=== PATIENT | female | born 1995 | race Caucasian/White ===

== ENCOUNTER 2018-12-25 21:41 | Emergency (ER) | payer OTHER ==
--- NOTE | 2018-12-25 22:30 | ER ---
Nurse's Notes [facility] Name: Makeda Fox Age: 23 yrs Sex: Female : 1995 Arrival Date: 12/25/2018 Time: 21:42 Bed 5 Private MD: Diagnosis: Otitis externa;Otitis media, unspecified, left ear Presentation: 12/25 21:47 Presenting complaint: Patient states: Left ear pain for 1 week. Seen by PCP yesterday aj and started on Augmentin. Transition of care: patient was not received from another setting of care. Onset of symptoms was December 18, 2018. Risk Assessment: Do you want to hurt yourself or someone else? Patient reports no desire to harm self or others. Initial Sepsis Screen: Does the patient meet any 2 criteria? No. Patient's initial sepsis screen is negative. Does the patient have a suspected source of infection? No. Patient's initial sepsis screen is negative. Care prior to arrival: None. 21:47 Method Of Arrival: Ambulatory aj 21:47 Acuity: MINI 4 aj Triage Assessment: 21:48 General: Appears in no apparent distress. uncomfortable, Behavior is calm, cooperative, aj appropriate for age. Pain: Complains of pain in left ear. EENT: Reports pain in left ear. Neuro: Level of Consciousness is awake, alert, obeys commands, Oriented to person, place, time, situation, Appropriate for age. Respiratory: Airway is patent Respiratory effort is even, unlabored, Respiratory pattern is regular, symmetrical. Derm: Skin is intact, is healthy with good turgor, Skin is pink, warm \T\ dry. normal. 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 - Social history:: Smoking status: Patient/guardian denies using tobacco. - Ebola Screening: : Patient negative for fever greater than or equal to 101.5 degrees Fahrenheit, and additional compatible Ebola Virus Disease symptoms Patient denies exposure to infectious person Patient denies travel to an Ebola-affected area in the 21 days before illness onset No symptoms or risks identified at this time. - Family history:: not pertinent. Screenin:00 Abuse screen: Denies threats or abuse. Nutritional screening: No deficits noted. jd3 Tuberculosis screening: No symptoms or risk factors identified. Fall Risk Ambulatory Aid- None/Bed Rest/Nurse Assist (0 pts). Gait- Normal/Bed Rest/Wheelchair (0 pts) Mental Status- Oriented to own ability (0 pts). Total Chau Fall Scale indicates No Risk (0-24 pts). Assessment: 21:55 General: Appears in no apparent distress. uncomfortable, Behavior is calm, cooperative, jd3 appropriate for age. Pain: Complains of pain in left ear Quality of pain is described as aching, sharp, tender. Neuro: Level of Consciousness is awake, alert, obeys commands, Oriented to person, place, time, situation. Cardiovascular: Capillary refill < 3 seconds Patient's skin is warm and dry. Respiratory: Airway is patent Respiratory effort is even, unlabored, Respiratory pattern is regular, symmetrical, Denies cough, shortness of breath. GI: No signs and/or symptoms were reported involving the gastrointestinal system. : No signs and/or symptoms were reported regarding the genitourinary system. EENT: Ear canal w/ drainage noted from left ear Reports decreased hearing in left ear pain in left ear. Derm: Skin is intact, Skin is dry, Skin is normal, Skin temperature is warm. Musculoskeletal: Circulation, motion, and sensation intact. Range of motion: intact in all extremities. 23:08 Reassessment: Patient appears in no apparent distress at this time. Patient and/or jd3 family updated on plan of care and expected duration. Pain level reassessed. Patient is alert, oriented x 3, equal unlabored respirations, skin warm/dry/pink. reported understanding of discharge instructions. Vital Signs: 21:48 BP 134 / 81; Pulse 111; Resp 20; Temp 98.0; Pulse Ox 100% on R/A; Weight 65.32 kg; aj Height 5 ft. 2 in. (157.48 cm); 23:06 BP 123 / 88; Pulse 103; Resp 15 S; Pulse Ox 99% on R/A; jd3 21:48 Body Mass Index 26.34 (65.32 kg, 157.48 cm) ED Course: 21:42 Patient arrived in ED. ds1 21:47 Lei Hugo MD is Attending Physician. adeel 21:48 Triage completed. aj 21:48 Arm band placed on right wrist. Patient placed in an exam room. aj 21:52 Diony Buitrago, RN is Primary Nurse. jd3 22:00 Patient has correct armband on for positive identification. Bed in low position. Call jd3 light in reach. Side rails up X 1. Adult w/ patient. 22:28 Nieves Cuadra MD is Referral Physician. adeel 23:05 No provider procedures requiring assistance completed. Patient did not have IV access jd3 during this emergency room visit. Administered Medications: 22:28 Not Given (Duplicate Order): CIPRODEX 4 drops Otic in left ear once adeel 22:54 Drug: Rocephin (cefTRIAXone) 1 grams Route: IM; Site: left gluteus; jd3 23:07 Follow up: Response: No adverse reaction jd3 22:54 Drug: Cortisporin Drops 4 drops Route: Otic; Site: left ear; jd3 23:08 Follow up: Response: No adverse reaction jd3 22:55 Drug: [place] 10 mg-325 mg 1 tabs Route: PO; jd3 23:07 Follow up: Response: No adverse reaction jd3 Point of Care Testing: Blood Glucose: 22:39 Blood Glucose: 101 mg/dL; jd3 Ranges: Outcome: 22:29 Discharge ordered by . [facility] 23:05 Discharged to home ambulatory, with family. jd3 23:05 Condition: stable 23:05 Discharge instructions given to patient, family, Instructed on discharge instructions, follow up and referral plans. medication usage, Demonstrated understanding of instructions, follow-up care, medications, Prescriptions given X 3. 23:08 Patient left the ED. jd3 Signatures: Essence Briceño, RN Lei Mora MD MD cha Sanford, Demi ds1 Diony Buitrago, RN RN jnajma
--- NOTE | 2018-12-25 22:30 | EDPHYS ---
Physician Documentation [facility] [place], [place] [facility] Name: Makeda Fox Age: 23 yrs Sex: Female : 1995 Arrival Date: 12/25/2018 Time: 21:42 Bed 5 Private MD: ED Physician Lei Hugo HPI: 12/25 22:22 This 23 yrs old Female presents to ER via Ambulatory with complaints of Ear adeel Pain. 22:22 The patient presents with drainage, pain, swelling, tenderness. The complaints affect adeel the left ear. Onset: The symptoms/episode began/occurred 3 day(s) ago. Modifying factors: The symptoms are alleviated by covering ear, the symptoms are aggravated by pulling on ears, touching. Associated signs and symptoms: The patient has no apparent associated signs or symptoms. Severity of symptoms: At their worst the symptoms were moderate in the emergency department the symptoms are worse. The patient has not experienced similar symptoms in the past. 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 - Social history:: Smoking status: Patient/guardian denies using tobacco. - Ebola Screening: : Patient negative for fever greater than or equal to 101.5 degrees Fahrenheit, and additional compatible Ebola Virus Disease symptoms Patient denies exposure to infectious person Patient denies travel to an Ebola-affected area in the 21 days before illness onset No symptoms or risks identified at this time. - Family history:: not pertinent. ROS: 22:22 Constitutional: Negative for fever, chills, and weight loss, Eyes: Negative for injury, adeel pain, redness, and discharge, ENT: Negative for injury, pain, and discharge, Neck: Negative for injury, pain, and swelling, Cardiovascular: Negative for chest pain, palpitations, and edema, Respiratory: Negative for shortness of breath, cough, wheezing, and pleuritic chest pain, Abdomen/GI: Negative for abdominal pain, nausea, vomiting, diarrhea, and constipation, Back: Negative for injury and pain, : Negative for injury, bleeding, discharge, and swelling, Skin: Negative for injury, rash, and discoloration, Neuro: Negative for headache, weakness, numbness, tingling, and seizure, Psych: Negative for depression, anxiety, suicide ideation, homicidal ideation, and hallucinations, Allergy/Immunology: Negative for hives, rash, and allergies, Endocrine: Negative for neck swelling, polydipsia, polyuria, polyphagia, and marked weight changes, Hematologic/Lymphatic: Negative for swollen nodes, abnormal bleeding, and unusual bruising. 22:22 ENT: Positive for ear pain, sinus congestion, sore throat. Exam: 22:22 Constitutional: This is a well developed, well nourished patient who is awake, alert, adeel and in no acute distress. Head/Face: Normocephalic, atraumatic. Eyes: Pupils equal round and reactive to light, extra-ocular motions intact. Lids and lashes normal. Conjunctiva and sclera are non-icteric and not injected. Cornea within normal limits. Periorbital areas with no swelling, redness, or edema. Neck: Trachea midline, no thyromegaly or masses palpated, and no cervical lymphadenopathy. Supple, full range of motion without nuchal rigidity, or vertebral point tenderness. No Meningismus. Chest/axilla: Normal chest wall appearance and motion. Nontender with no deformity. No lesions are appreciated. Cardiovascular: Regular rate and rhythm with a normal S1 and S2. No gallops, murmurs, or rubs. Normal PMI, no JVD. No pulse deficits. Respiratory: Lungs have equal breath sounds bilaterally, clear to auscultation and percussion. No rales, rhonchi or wheezes noted. No increased work of breathing, no retractions or nasal flaring. Abdomen/GI: Soft, non-tender, with normal bowel sounds. No distension or tympany. No guarding or rebound. No evidence of tenderness throughout. Back: No spinal tenderness. No costovertebral tenderness. Full range of motion. Skin: Warm, dry with normal turgor. Normal color with no rashes, no lesions, and no evidence of cellulitis. MS/ Extremity: Pulses equal, no cyanosis. Neurovascular intact. Full, normal range of motion. Neuro: Awake and alert, GCS 15, oriented to person, place, time, and situation. Cranial nerves II-XII grossly intact. Motor strength 5/5 in all extremities. Sensory grossly intact. Cerebellar exam normal. Normal gait. Psych: Awake, alert, with orientation to person, place and time. Behavior, mood, and affect are within normal limits. 22:22 ENT: Ear canal(s): erythema, swelling, that is moderate, of the left canal, TM's: erythema, that is mild, that is moderate, on the left. Vital Signs: 21:48 BP 134 / 81; Pulse 111; Resp 20; Temp 98.0; Pulse Ox 100% on R/A; Weight 65.32 kg; aj Height 5 ft. 2 in. (157.48 cm); 23:06 BP 123 / 88; Pulse 103; Resp 15 S; Pulse Ox 99% on R/A; jd3 21:48 Body Mass Index 26.34 (65.32 kg, 157.48 cm) aj MDM: 22:10 Patient medically screened. [facility] 22:27 Data reviewed: vital signs, nurses notes, lab test result(s). [facility] 12/25 22:42 Order name: Test, Urine EDNC 12/25 23:04 Order name: Urine Dipstick--Ancillary (enter results) [facility] 12/25 22:22 Order name: Urine Dipstick-Ancillary (obtain specimen); Complete Time: 22:38 [facility] 12/25 22:22 Order name: Urine Test (obtain specimen); Complete Time: 22:56 [facility] 12/25 22:28 Order name: Blood Glucose Level; Complete Time: 22:38 [facility] Administered Medications: 22:28 Not Given (Duplicate Order): CIPRODEX 4 drops Otic in left ear once [facility] 22:54 Drug: Rocephin (cefTRIAXone) 1 grams Route: IM; Site: left gluteus; jd3 23:07 Follow up: Response: No adverse reaction jd3 22:54 Drug: Cortisporin Drops 4 drops Route: Otic; Site: left ear; jd3 23:08 Follow up: Response: No adverse reaction jd3 22:55 Drug: [place] 10 mg-325 mg 1 tabs Route: PO; jd3 23:07 Follow up: Response: No adverse reaction jd3 Point of Care Testing: Blood Glucose: 22:39 Blood Glucose: 101 mg/dL; jd3 Ranges: Critical Glucose Levels:Adult <50 mg/dl or >400 mg/dl <40 mg/dl or >180 mg/dl Disposition: 12/25/18 22:29 Discharged to Home. Impression: Otitis externa, Otitis media, unspecified, left ear. - Condition is Stable. - Discharge Instructions: Ear Drops, Adult, Otitis Externa, Otitis Externa, [id number], Ear Drops, Adult, [id number]. - Prescriptions for Augmentin 875- 125 mg Oral Tablet - take 1 tablet by ORAL route every 12 hours for 10 days; 20 tablet. Tylenol- Codeine #3 300-30 mg Oral Tablet - take 2 tablet by ORAL route every 6 hours As needed; 30 tablet. Ciprodex 0.3- 0.1 % Otic Drops, Suspension - instill 4 drop by OTIC route every 12 hours for 7 days , for ears ONLY; 1 Container. - Medication Reconciliation Form, Thank You Letter, Antibiotic Education, Prescription Opioid Use form. - Follow up: Private Physician; When: 2 - 3 days; Reason: Recheck today's complaints, Continuance of care, Re-evaluation by your physician. Follow up: Nieves Cuadra MD; When: 2 - 3 days; Reason: Recheck today's complaints, Re-evaluation by your physician. - Problem is new. - Symptoms have improved. Signatures: Dispatcher [employer] EDEssence Walker RN RN aj Anderson, Corey, MD MD cha Davies, Jonathon, RN RN jd3 Corrections: (The following items were deleted from the chart) 23:08 22:29 12/25/2018 22:29 Discharged to Home. Impression: Otitis externa; Otitis media, jd3 unspecified, left ear. Condition is Stable. Forms are Medication Reconciliation Form, Thank You Letter, Antibiotic Education, Prescription Opioid Use. Follow up: Private Physician; When: 2 - 3 days; Reason: Recheck today's complaints, Continuance of care, Re-evaluation by your physician. Follow up: Nieves Cuadra; When: 2 - 3 days; Reason: Recheck today's complaints, Re-evaluation by your physician. Problem is new. Symptoms have improved. adeel
[2018-12-25 22:46] LABS: Specific Gravity >= 1.030 (1.005-1.030)
[2018-12-25] MEDS ORDERED: HYDROCODONE/APAP 10/325 TAB ONE (22:58)
[2018-12-25] MEDS ORDERED: NEOMY/POLY/HC 1% OTIC DROPS ONE (22:58)
[2018-12-25] MEDS ORDERED: CEFTRIAXONE 1000 MG/VIAL ONE (22:59)
[2018-12-25 23:10] LABS: Urine Blood NEGATIVE (NEG); Urine Glucose NEGATIVE (NEG); Urine Protein 1+ (NEG); Urine Specific Gravity 1.025 (1.005-1.030); Urine pH 5.5 (5.0-7.0)
== END 2018-12-25 23:08 | disposition home or self-care (01) ==
LOC: ER 21:41
DX: H60.92 Unspecified otitis externa, left ear (principal); H66.92 Otitis media, unspecified, left ear; Z88.2 Allergy status to sulfonamides; Z88.8 Allergy status to other drugs, medicaments and biological substances; Z91.013 Allergy to seafood
CPT/HCPCS: 81003; 81025; 82962; 96372; 99283

== ENCOUNTER 2019-07-15 23:08 | Emergency (ER) | payer OTHER ==
[2019-07-16] MEDS ORDERED: HYDROCODONE/APAP 5/325 MG TAB ONE ×2 (00:07→02:01)
--- NOTE | 2019-07-16 01:45 | ER ---
Nurse's Notes [facility] Name: Makeda Fox Age: 23 yrs Sex: Female : 1995 Arrival Date: 07/15/2019 Time: 23:10 Bed 23 Private MD: Diagnosis: Right elbow fracture Presentation: 07/15 23:25 Presenting complaint: Patient states: i was skating in today when i fell and landed on mg2 my right arm. 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 Transition of care: patient was not received from another setting of care. Onset of symptoms was July 15, 2019. Risk Assessment: Do you want to hurt yourself or someone else? Patient reports no desire to harm self or others. Initial Sepsis Screen: Does the patient meet any 2 criteria? No. Patient's initial sepsis screen is negative. Does the patient have a suspected source of infection? No. Patient's initial sepsis screen is negative. Care prior to arrival: None. 23:25 Method Of Arrival: Ambulatory mg2 23:25 Acuity: MINI 4 mg2 Triage Assessment: 23:16 General: Behavior is calm, cooperative. ls4 23:16 Injury Description: Bruise sustained to right elbow was sustained 1-2 hours ago. ls4 Historical: - Allergies: 23:27 Iodine; mg2 23:27 SHELLFISH; mg2 23:27 Sulfa (Sulfonamide Antibiotics); mg2 - Home Meds: 23:27 Alprazolam Oral [Active]; paroxetine Oral [Active]; mg2 - PMHx: 23:27 Anxiety; Depression; mg2 - PSHx: 23:27 None; mg2 - Immunization history:: Flu vaccine is not up to date. - Coronavirus screen:: The patient has NOT traveled to [place] in the past 14 days. Proceed with normal triage process as indicated. - Social history:: Smoking status: Patient denies any tobacco usage or history of. Patient uses alcohol, occasionally. Patient/guardian denies using street drugs, IV drugs. - Ebola Screening: : No symptoms or risks identified at this time. Screenin:25 Abuse screen: Denies threats or abuse. Denies injuries from another. Nutritional ls4 screening: No deficits noted. Tuberculosis screening: No symptoms or risk factors identified. 23:25 Fall Risk None identified. ls4 Assessment: 23:16 General: Appears uncomfortable. Pain: Complains of pain in right elbow Pain currently ls4 is 8 out of 10 on a pain scale. Neuro: No deficits noted. Cardiovascular: No deficits noted. Respiratory: No deficits noted. GI: No deficits noted. : No deficits noted. Derm: No deficits noted. Musculoskeletal: Circulation, motion, and sensation intact. Capillary refill < 3 seconds, Range of motion: limited in right elbow. 07/16 00:30 Reassessment: Patient appears in no apparent distress at this time. Patient and/or ls4 family updated on plan of care and expected duration. Pain level reassessed. Patient is alert, oriented x 3, equal unlabored respirations, skin warm/dry/pink. 01:52 Reassessment: Patient and/or family updated on plan of care and expected duration. Pain ls4 level reassessed. Patient is alert, oriented x 3, equal unlabored respirations, skin warm/dry/pink. POSTERIOR LONG ARM ELBOW SPLINT APPLIED. CMS INTACT DISTALLY. Vital Signs: 07/15 23:27 Resp 18; Temp 99.2; Pulse Ox 100% on R/A; Weight 61.23 kg; Height 5 ft. 2 in. (157.48 mg2 cm); 23:30 BP 128 / 88; Pulse 80; mg2 07/16 01:49 BP 124 / 78; Pulse 72; Resp 14; Temp 98.4(O); Pulse Ox 99% on R/A; Pain 5/10; ls4 07/15 23:27 Body Mass Index 24.69 (61.23 kg, 157.48 cm) mg2 ED Course: 07/15 23:10 Patient arrived in ED. jg7 23:25 Jalil Kelsey NP is PHCP. pm1 23:25 Noble Jorge MD is Attending Physician. pm1 23:25 Patient has correct armband on for positive identification. Bed in low position. Call ls4 light in reach. Side rails up X 1. 23:25 No provider procedures requiring assistance completed. Patient did not have IV access ls4 during this emergency room visit. 23:26 Triage completed. mg2 23:27 Arm band placed on. mg2 23:28 Sling applied to right arm. mg2 23:44 Lizett Archer, MARIBEL is Primary Nurse. ls4 07/16 00:11 Hand Right 3 View XRAY Sent. ls4 00:11 Elbow Right 3 View XRAY Sent. ls4 01:43 Clint Christianson MD is Referral Physician. pm1 01:52 Orthoglass splint: posterior long arm splint applied to the right arm. ls4 Administered Medications: 00:04 Drug: [place] 5 mg-325 mg 1 tabs Route: PO; ls4 00:30 Follow up: Response: No adverse reaction; Pain is decreased ls4 01:58 Drug: [place] 5 mg-325 mg 1 tabs Route: PO; ls4 02:03 Follow up: Response: No adverse reaction ls4 Outcome: 01:44 Discharge ordered by . pm1 01:53 Discharged to home ambulatory, with family. ls4 01:53 Condition: stable 01:53 Discharge instructions given to patient, family, Instructed on discharge instructions, follow up and referral plans. medication usage, Demonstrated understanding of instructions, follow-up care, medications, splint care, Prescriptions given X 1. 02:02 Patient left the ED. ls4 Signatures: Jalil Kelsey NP CONTROLLED AREA CHECKER pm1 Daniele Ferris RN RN mg2 Lizett Archer RN RN ls4 Chelo Mclean jg7 Corrections: (The following items were deleted from the chart) 02/ 23:28 23:25 Presenting complaint: Patient states: i was skating in today when i fell and mg2 landed on my right arm. mg2
--- NOTE | 2019-07-16 01:45 | EDPHYS ---
Physician Documentation [facility] Name: Makeda Fox Age: 23 yrs Sex: Female : 1995 Arrival Date: 07/15/2019 Time: 23:10 Bed 23 Private MD: ED Physician Noble Jorge HPI: 07/15 23:35 This 23 yrs old Female presents to ER via Ambulatory with complaints of Arm pm1 Injury. 23:35 The patient or guardian complains of pain, that is acute. The complaints affect the pm1 right elbow. Context: resulted from fall while roller skating. Onset: The symptoms/episode began/occurred just prior to arrival. Treatment prior to arrival includes: no previous treatment. Modifying factors: The symptoms are alleviated by nothing. the symptoms are aggravated by movement. Associated signs and symptoms: Pertinent positives: pain, swelling, of the right elbow, Pertinent negatives: deformity. The patient has not experienced similar symptoms in the past. The patient has not recently seen a physician. Patient was skating and fell and landed directly on her right elbow. No headache, head injury, neck pain, LOC. Historical: - Allergies: 23:27 Iodine; mg2 23:27 SHELLFISH; mg2 23:27 Sulfa (Sulfonamide Antibiotics); mg2 - Home Meds: 23:27 Alprazolam Oral [Active]; paroxetine Oral [Active]; mg2 - PMHx: 23:27 Anxiety; Depression; mg2 - PSHx: 23:27 None; mg2 - Immunization history:: Flu vaccine is not up to date. - Coronavirus screen:: The patient has NOT traveled to [place] in the past 14 days. Proceed with normal triage process as indicated. - Social history:: Smoking status: Patient denies any tobacco usage or history of. Patient uses alcohol, occasionally. Patient/guardian denies using street drugs, IV drugs. - Ebola Screening: : No symptoms or risks identified at this time. ROS: 23:35 Constitutional: Negative for fever, chills, and weight loss, Neck: Negative for injury, pm1 pain, and swelling, Cardiovascular: Negative for chest pain, palpitations, and edema, Respiratory: Negative for shortness of breath, cough, wheezing, and pleuritic chest pain, Back: Negative for injury and pain. 23:35 Skin: Negative for injury, rash, and discoloration, Neuro: Negative for headache, weakness, numbness, tingling, and seizure. 23:35 MS/extremity: Positive for pain, tenderness, of the right elbow. Exam: 23:35 Constitutional: This is a well developed, well nourished patient who is awake, alert, pm1 and in no acute distress. Head/Face: Normocephalic, atraumatic. Neck: Trachea midline, no thyromegaly or masses palpated, and no cervical lymphadenopathy. Supple, full range of motion without nuchal rigidity, or vertebral point tenderness. No Meningismus. Chest/axilla: Normal chest wall appearance and motion. Nontender with no deformity. No lesions are appreciated. Cardiovascular: Regular rate and rhythm with a normal S1 and S2. No gallops, murmurs, or rubs. Normal PMI, no JVD. No pulse deficits. Respiratory: Lungs have equal breath sounds bilaterally, clear to auscultation and percussion. No rales, rhonchi or wheezes noted. No increased work of breathing, no retractions or nasal flaring. Skin: Warm, dry with normal turgor. Normal color with no rashes, no lesions, and no evidence of cellulitis. 23:35 Musculoskeletal/extremity: Extremities: grossly normal except: noted in the right elbow: tenderness, patient unable to pronate right arm, Circulation is intact in all extremities. 23:35 Neuro: Orientation: is normal, Motor: is normal, moves all fours. Vital Signs: 23:27 Resp 18; Temp 99.2; Pulse Ox 100% on R/A; Weight 61.23 kg; Height 5 ft. 2 in. (157.48 mg2 cm); 23:30 BP 128 / 88; Pulse 80; mg2 07/16 01:49 BP 124 / 78; Pulse 72; Resp 14; Temp 98.4(O); Pulse Ox 99% on R/A; Pain 5/10; ls4 07/15 23:27 Body Mass Index 24.69 (61.23 kg, 157.48 cm) mg2 Procedures: 01:43 Splinting: Splint applied to right arm using Orthoglass splint, applied by myself. pm1 Examined by me, post splint application: neurovascular intact, 2+ distal pulses palpable, brisk capillary refill noted, Patient tolerated well. MDM: 07/15 23:25 Patient medically screened. pm1 07/16 01:43 Data reviewed: vital signs. Data interpreted: Pulse oximetry: on room air is 100 %. pm1 Interpretation: normal. Counseling: I had a detailed discussion with the patient and/or guardian regarding: the historical points, exam findings, and any diagnostic results supporting the discharge/admit diagnosis, radiology results, the need for outpatient follow up, for definitive care, a orthopedic surgeon, to return to the emergency department if symptoms worsen or persist or if there are any questions or concerns that arise at home. 07/15 23:35 Order name: Elbow Right 3 View XRAY pm1 07/15 23:35 Order name: Hand Right 3 View XRAY pm1 07/16 01:56 Order name: Posterior Elbow Splint; Complete Time: 02:03 pm1 Administered Medications: 00:04 Drug: [place] 5 mg-325 mg 1 tabs Route: PO; ls4 00:30 Follow up: Response: No adverse reaction; Pain is decreased ls4 01:58 Drug: [place] 5 mg-325 mg 1 tabs Route: PO; ls4 02:03 Follow up: Response: No adverse reaction ls4 Disposition: 06:14 Co-signature as Attending Physician, Noble Jorge MD I agree with the assessment and tw4 plan of care. Disposition: 07/16/19 01:44 Discharged to Home. Impression: Right elbow fracture. - Condition is Stable. - Discharge Instructions: Cast or Splint Care, Adult, Elbow Fracture, Pediatric, How to Use a Sling. - Prescriptions for Tylenol- Codeine #3 300-30 mg Oral Tablet - take 2 tablets by ORAL route every 6 hours As needed; 20 tablet. - Work release form, Medication Reconciliation Form, Thank You Letter, Antibiotic Education, Prescription Opioid Use form. - Follow up: Emergency Department; When: As needed; Reason: Worsening of condition. Follow up: Clint Christianson MD; When: 2 - 3 days; Reason: Recheck today's complaints, Continuance of care, Re-evaluation by your physician. - Problem is new. - Symptoms have improved. Signatures: Dispatcher [employer] EDMS Jalil Kelsey, LEAD CASTER LEAD CASTER pm1 Noble Jorge MD MD tw4 Daniele Ferris RN RN mg2 Gianni, Lizett, RN RN ls4 Corrections: (The following items were deleted from the chart) 02:02 01:44 07/16/2019 01:44 Discharged to Home. Impression: Right elbow fracture. Condition ls4 is Stable. Forms are Medication Reconciliation Form, Thank You Letter, Antibiotic Education, Prescription Opioid Use. Follow up: Emergency Department; When: As needed; Reason: Worsening of condition. Follow up: Dr. Clint Christianson; When: 2 - 3 days; Reason: Recheck today's complaints, Continuance of care, Re-evaluation by your physician. Problem is new. Symptoms have improved. pm1
--- NOTE | 2019-07-16 09:01 | RAD REPORT ---
EXAM DESCRIPTION: RAD - Hand Right 3 View - 07/16/2019 12:16 am CLINICAL HISTORY: PAIN COMPARISON: No comparisons FINDINGS: Exam is labeled as a three-view right hand examination. Imaging is centered on the carpal bones and metacarpals. Portions of the distal phalanges are off the field of view. No fracture identified. There is no dislocation or periosteal reaction noted. No foreign body or sig nificant soft tissue abnormality. IMPRESSION: Negative right hand examination as detailed.
--- NOTE | 2019-07-16 09:03 | RAD REPORT ---
EXAM DESCRIPTION: RAD - Elbow Right 3 View - 07/16/2019 12:16 am CLINICAL HISTORY: PAIN COMPARISON: No comparisons FINDINGS: Lateral view shows elevated posterior fat pad. This is indirect evidence for fracture. The re is a questionable fracture along the lateral margin of the radial head. This is a subtle finding. Distal humerus and proximal ulna appear intact. There is no dislocation or periosteal reaction noted. No foreign body or other soft tissue abnormality. IMPRESSION: Elevated posterior fat pad is present which can be indirect evidence for fracture. There is a questionable fracture along the lateral margin of the radial head. MR imaging can be performed for a more sensitive assessment of the bony structures and soft tissues. Alternatively, follow-up views of the elbow in 7 days could be performed to re-evaluate for fracture.
[2019-07-17 15:23] VITALS: BP 124/78; TEMP 98.4; O2SAT 99
== END 2019-07-16 02:02 | disposition home or self-care (01) ==
LOC: ER 23:08
PROC: 2W38X1Z Immobilization of Right Upper Extremity using Splint (ICD-10-PCS; principal; 2019-07-16)
DX: S42.401A Unspecified fracture of lower end of right humerus, initial encounter for closed fracture (principal); W18.30XA Fall on same level, unspecified, initial encounter; Y93.51 Activity, roller skating (inline) and skateboarding; Y92.89 Other specified places as the place of occurrence of the external cause
CPT/HCPCS: 99284

== ENCOUNTER 2020-03-21 17:17 | Emergency (ER) | payer OTHER ==
--- NOTE | 2020-03-21 18:14 | RAD REPORT ---
EXAM DESCRIPTION: CT - Head Brain Wo Cont - 03/21/2020 5:48 pm CLINICAL HISTORY: HEADACHE Headache, drowsiness COMPARISON: HEAD BRAIN W O CONTRAST dated 09/29/2014; HEAD BRAIN W O CONTRAST dated 12/15/2011 TECHNIQUE: All CT scans are performed using dose optimization technique as appropriate and may inclu de automated exposure control or mA/KV adjustment according to patient size. FINDINGS: No intracranial hemorrhage, hydrocephalus or extra-axial fluid collection.No areas of brai n edema or evidence of midline shift. The paranasal sinuses and mastoids are clear. The calvarium is intact. IMPRESSION: No acute intracranial abnormality.
[2020-03-21 18:20] LABS: MPV 7.8 fL (7.6-11.3)
[2020-03-21] MEDS ORDERED: NA CHLORIDE 0.9% 1,000 ML ONE (18:23)
[2020-03-21] MEDS ORDERED: MEPERIDINE HCL 50 MG/ML ONE (18:23)
[2020-03-21 18:30] LABS: Absolute Lymphocytes (CBC) 1.9 K/uL (0.7-4.9); Basophils % 0.4 % (0-1.3); Hematocrit 37.6 % (36.0-45.0); Lymphocytes % 24.1 % (15.3-44.8); RBC Red Blood Cell Count 3.99 M/uL (3.86-4.86)
[2020-03-21 18:36] LABS: BUN Blood Urea Nitrogen 7 mg/dL (7-18); Bicarbonate 24 mmol/L (21-32); Glucose Level 102 mg/dL (74-106); Potassium 3.3 mmol/L (3.5-5.1); Sodium Level 142 mmol/L (136-145)
[2020-03-21 19:25] LABS: CSF Glucose 56 mg/dL (40-70)
[2020-03-21 19:49] LABS: Appearance CLEAR (CLEAR); Body Fluid Source CSF; Body Fluid WBC 0 /mm^3; Color of fluid Colorless (COLORLESS)
[2020-03-21 19:58] LABS: Appearance CLEAR (CLEAR); Body Fluid Source CSF; Body Fluid WBC 0 /mm^3; Color of fluid Colorless (COLORLESS); Fluid Total Volume 2 ml
--- NOTE | 2020-03-21 21:39 | ER ---
Nurse's Notes [facility] Name: Makeda Fox Age: 24 yrs Sex: Female : 1995 Arrival Date: 03/21/2020 Time: 17:18 Bed 6 Private MD: Diagnosis: Infectious mononucleosis, unspecified without complication Presentation: 03/21 17:32 Chief complaint: Patient states: headache X 4-5 hours today, feels like a lot of iw pressure , brain feels like it's touching her skull, also feels like her neck is stiff, and is sensitive to light, no fever, diarrhea X 2 days. Coronavirus screen: diarrhea, headache. Ebola Screen: Patient negative for fever greater than or equal to 101.5 degrees Fahrenheit, and additional compatible Ebola Virus Disease symptoms Patient denies exposure to infectious person. Patient denies travel to an Ebola-affected area in the 21 days before illness onset. No symptoms or risks identified at this time. Initial Sepsis Screen: Does the patient meet any 2 criteria? No. Patient's initial sepsis screen is negative. Does the patient have a suspected source of infection? No. Patient's initial sepsis screen is negative. Risk Assessment: Do you want to hurt yourself or someone else? Patient reports no desire to harm self or others. 17:32 Method Of Arrival: Ambulatory iw 17:32 Acuity: MINI 3 iw 21:55 Onset of symptoms is unknown. rv Triage Assessment: 20:00 Pain: Pain began suddenly, Also complains of photophobia. rv 20:00 Headache History: The patient has had previous headaches and this one is more severe rv than previous episodes. General: Appears uncomfortable, ill. General: Behavior is calm, cooperative. Historical: - Allergies: 17:35 Iodine; iw 17:35 SHELLFISH; iw 17:35 Sulfa (Sulfonamide Antibiotics); iw - PMHx: 17:35 Anxiety; Depression; iw - Immunization history:: Adult Immunizations up to date. - Family history:: not pertinent. - Social history:: Smoking status: unknown. - Hospitalizations: : No recent hospitalization is reported. Screenin:37 Abuse screen: Denies threats or abuse. Denies injuries from another. Nutritional iw screening: No deficits noted. Tuberculosis screening: No symptoms or risk factors identified. Fall Risk IV access (20 points). Assessment: 17:36 General: Appears in no apparent distress. Behavior is calm, cooperative. General: iw Reports fatigue for Denies fever. Pain: Complains of pain in head Pain currently is 10 out of 10 on a pain scale. Neuro: Level of Consciousness is awake, alert, obeys commands, Oriented to person, place, time, situation, Book Solicitor are equal bilaterally Moves all extremities. Full function Gait is steady, Speech is normal, Facial symmetry appears normal, Pupils are PERRLA, Reports headache that is the "worst ever". Cardiovascular: Patient's skin is warm and dry. Respiratory: Respiratory effort is even, unlabored, Respiratory pattern is regular, symmetrical. GI: Reports diarrhea. Derm: Skin is intact, is healthy with good turgor. Musculoskeletal: Range of motion: intact in all extremities. 21:07 Reassessment: PATIENT REPOSITIONED TO HIGH BACK REST. PATIENT DENIES ANY NEW SYMPTOMS. rv VITAL SIGNS STABLE. Neuro: Level of Consciousness is awake, alert, obeys commands, Oriented to person, place, time, situation. Vital Signs: 17:32 BP 120 / 95; Pulse 105; Resp 16; Temp 97.9; Pulse Ox 100% on R/A; iw 18:08 BP 120 / 95; Pulse 89; Resp 16; Pulse Ox 100% on R/A; iw 20:00 BP 118 / 86; Pulse 81; Resp 16; Pulse Ox 100% on R/A; rv 21:00 BP 123 / 82; Pulse 71; Resp 16; Pulse Ox 100% ; rv ED Course: 17:18 Patient arrived in ED. as 17:27 Stan Baires MD is Attending Physician. rn 17:32 Chelo Rodriguez, RN is Primary Nurse. rb1 17:34 Triage completed. iw 17:35 Jami Mohr, RN is Primary Nurse. iw 17:35 Arm band placed on. iw 17:48 CT Head Brain wo Cont In Process Unspecified. EDMS 18:13 COVID-19 Sent. rb1 18:13 Influenza Screen (a \\T\\ B) Sent. rb1 18:13 Strep Sent. rb1 20:00 Patient has correct armband on for positive identification. Bed in low position. Call rv light in reach. Side rails up X2. Adult w/ patient. 20:00 Pulse ox on. NIBP on. rv 21:08 Assist provider with lumbar puncture: Set up LP tray. Performed by Janette Rivera rv ELECTRICIAN SUBSTATION SUPERVISOR-C CSF is clear. Procedure was successful. Patient tolerated well. 21:55 IV discontinued, intact, bleeding controlled, No redness/swelling at site. Pressure rv dressing applied. Administered Medications: 18:15 Drug: NS 0.9% 1000 ml Route: IV; Rate: 1000 ml; Site: right antecubital; iw 21:56 Follow up: IV Status: Completed infusion; IV Intake: 1000ml rv 18:20 Drug: Demerol 50 mg Route: IVP; Site: right antecubital; iw 21:56 Follow up: Response: No adverse reaction; Marked relief of symptoms; Pain is decreased; rv RASS: Alert and Calm (0) Intake: 21:56 IV: 1000ml; Total: 1000ml. rv Outcome: 21:39 Discharge ordered by . tw4 21:55 Discharged to home ambulatory, with family. rv 21:55 Condition: improved 21:55 Discharge instructions given to patient, family, Instructed on discharge instructions, follow up and referral plans. medication usage, Demonstrated understanding of instructions, follow-up care, medications, Prescriptions given X 1. 21:55 Patient left the ED. rv Addendum: 03/24/2020 16:26 Addendum: COVID-19 Result: Negative result given to RN to notify pt. Attempted to i w contact pt regarding negative COVID-19 swab results. Left voice mail. 03/25/2020 14:28 Addendum: COVID-19 Result: Negative result given to RN to notify pt. Other: Pt came to a a5 the ER asking for COVID-19 results and was called back with negative COVID-19 result. Signatures: Dispatcher [employer] Mariam Sousa Irene, RN RN iw Stan Baires MD MD rn Calderon, Audri, RN RN aa5 Chelo Rodriguez, MARIBEL RN rb1 Noble Jorge MD MD tw4 Jonathan Ballard RN RN rv Corrections: (The following items were deleted from the chart) 03/21 17:36 17:32 BP 120 / 95; Pulse 87bpm; Resp 16bpm; Pulse Ox 100% RA; Temp 97.9F; iw iw
--- NOTE | 2020-03-21 21:39 | EDPHYS ---
Physician Documentation [facility] Name: Makeda Fox Age: 24 yrs Sex: Female : 1995 Arrival Date: 03/21/2020 Time: 17:18 Bed 6 Private MD: ED Physician Stan Baires HPI: 03/21 17:44 This 24 yrs old Female presents to ER via Ambulatory with complaints of rn Headache, Worst Ever, Stiff Neck, Fatigue, Diarrhea. 17:44 The patient complains of pain to the diffusely. The patient describes the headache as rn aching. Onset: The symptoms/episode began/occurred today. Severity of symptoms: At its worst the pain was "never this severe", the "worst in my life". Headache History: The patient has had previous headaches and this one is more severe than previous episodes. The symptoms are alleviated by nothing. the symptoms are aggravated by lights. The patient has not experienced similar symptoms in the past. The patient has not recently seen a physician. Reports headache, sudden onset, began today, used to have headaches but never this severe. No fever. + chills, sore throat, neck pain, diarrhea. No known sick contacts. No cough/sob. . Historical: - Allergies: 17:35 Iodine; iw 17:35 SHELLFISH; iw 17:35 Sulfa (Sulfonamide Antibiotics); iw - PMHx: 17:35 Anxiety; Depression; iw - Immunization history:: Adult Immunizations up to date. - Family history:: not pertinent. - Social history:: Smoking status: unknown. - Hospitalizations: : No recent hospitalization is reported. ROS: 17:44 Constitutional: Negative for fever, + chills Eyes: Negative for injury, pain, redness, rn and discharge, Neck: Negative for injury, and swelling, Cardiovascular: Negative for chest pain, palpitations, and edema, Respiratory: Negative for shortness of breath, cough, wheezing, and pleuritic chest pain, Abdomen/GI: Negative for abdominal pain, nausea, vomiting, and constipation, Back: Negative for injury and pain, : Negative for injury, bleeding, discharge, and swelling, MS/Extremity: Negative for injury and deformity, Skin: Negative for injury, rash, and discoloration, Neuro: Negative for numbness, tingling, and seizure. Exam: 17:44 Constitutional: This is a well developed, well nourished patient who is awake, alert, rn and in no acute distress. Sitting upright in bed. Head/Face: Normocephalic, atraumatic. Eyes: Pupils equal round and reactive to light, extra-ocular motions intact. Lids and lashes normal. Conjunctiva and sclera are non-icteric and not injected. Cornea within normal limits. Periorbital areas with no swelling, redness, or edema. ENT: + nontender anterior cervical LAD, no pharyngeal abnormality. Neck: Supple, full range of motion without nuchal rigidity, or vertebral point tenderness. No Meningismus. Cardiovascular: Tachycardic, regular Respiratory: No increased work of breathing, no retractions or nasal flaring. Skin: Warm, dry, no petechiae or cellulitis MS/ Extremity: Pulses equal, no cyanosis. Neuro: Awake and alert, GCS 15, oriented to person, place, time, and situation. Cranial nerves II-XII grossly intact. Motor strength 5/5 in all extremities. Sensory grossly intact. Cerebellar exam normal. Vital Signs: 17:32 BP 120 / 95; Pulse 105; Resp 16; Temp 97.9; Pulse Ox 100% on R/A; iw 18:08 BP 120 / 95; Pulse 89; Resp 16; Pulse Ox 100% on R/A; iw 20:00 BP 118 / 86; Pulse 81; Resp 16; Pulse Ox 100% on R/A; rv 21:00 BP 123 / 82; Pulse 71; Resp 16; Pulse Ox 100% ; rv Procedures: 18:41 Lumbar Puncture: Patient placed in left lateral decubitus position. Draped using rn sterile technique. used chlorhexidine because of iodine allergy. Collected 8 ml's of clear fluid. Sample sent to lab. Puncture site dressed with band aid, Patient tolerated well. Opening pressure 30. MDM: 17:27 Patient medically screened. rn 19:31 Transition of care: After a detail discussion of the patient's case, care is rn transferred to Noble Jorge MD. ED course: Signed out to Dr. Jorge pending CSF studies and rest of blood work. KEMP improved, stable vitals. . 03/21 17:43 Order name: CBC with Diff; Complete Time: 19:23 rn 03/21 17:43 Order name: Basic Metabolic Panel; Complete Time: 19:23 rn 03/21 17:43 Order name: Strep; Complete Time: 19:23 rn 03/21 17:43 Order name: Influenza Screen (a \\T\\ B); Complete Time: 19:23 rn 03/21 17:43 Order name: [place] Screen Profile; Complete Time: 21:37 rn 03/21 17:43 Order name: Procalcitonin; Complete Time: 21:37 rn 03/21 17:28 Order name: CT Head Brain wo Cont; Complete Time: 18:25 rn 03/21 17:44 Order name: Blood Culture Adult (2) rn 03/21 17:55 Order name: COVID-19 rn 03/21 18:30 Order name: Throat Culture EDMS 03/21 18:48 Order name: CSF Bacterial Antigens (tube 1); Complete Time: 21:37 kb 03/21 18:48 Order name: Csf Culture kb 03/21 18:48 Order name: Fluid Cell Count,Body; Complete Time: 21:37 kb 03/21 18:48 Order name: Spinal Fluid Profile; Complete Time: 21:37 kb 03/21 17:43 Order name: IV Start; Complete Time: 18:08 rn 03/21 17:55 Order name: Lumbar Puncture Consent; Complete Time: 18:22 rn 03/21 17:55 Order name: Lumbar Puncture Setup; Complete Time: 18:42 rn 03/21 18:48 Order name: LP Consents; Complete Time: 19:48 kb 03/21 18:48 Order name: LP Setup; Complete Time: 19:48 kb Administered Medications: 18:15 Drug: NS 0.9% 1000 ml Route: IV; Rate: 1000 ml; Site: right antecubital; iw 21:56 Follow up: IV Status: Completed infusion; IV Intake: 1000ml rv 18:20 Drug: Demerol 50 mg Route: IVP; Site: right antecubital; iw 21:56 Follow up: Response: No adverse reaction; Marked relief of symptoms; Pain is decreased; rv RASS: Alert and Calm (0) Disposition: 03/21/20 21:39 Discharged to Home. Impression: Infectious mononucleosis, unspecified without complication. - Condition is Stable. - Discharge Instructions: Tension Headache, Adult, Infectious Mononucleosis. - Prescriptions for Ibuprofen 800 mg Oral Tablet - take 1 tablet by ORAL route every 8 hours As needed take with food; 30 tablet. - Work release form, Medication Reconciliation Form, Thank You Letter, Antibiotic Education, Prescription Opioid Use form. - Follow up: Private Physician; When: Upon discharge from the Emergency Department; Reason: Recheck today's complaints, Continuance of care, Re-evaluation by your physician. - Problem is new. - Symptoms have improved. Signatures: Dispatcher [employer] EDOR Janette Rivera, WAYS OPERATOR-C WAYS OPERATOR-Ckb Jami Mohr, MARIBEL RN Stan Moise MD MD rn Wadley, Terrence, MD MD tw4 Jonathan Ballard RN RN rv Corrections: (The following items were deleted from the chart) 21:55 21:39 03/21/2020 21:39 Discharged to Home. Impression: Infectious mononucleosis, rv unspecified without complication. Condition is Stable. Forms are Medication Reconciliation Form, Thank You Letter, Antibiotic Education, Prescription Opioid Use. Follow up: Private Physician; When: Upon discharge from the Emergency Department; Reason: Recheck today's complaints, Continuance of care, Re-evaluation by your physician. Problem is new. Symptoms have improved. tw4
[2020-03-21 22:12] VITALS: O2SAT 100
[2020-03-21 22:15] VITALS: TEMP 97.9
[2020-03-21 22:21] VITALS: BP 123/82
== END 2020-03-21 21:55 | disposition home or self-care (01) ==
LOC: ER 17:17
PROC: 009U3ZX Drainage of Spinal Canal, Percutaneous Approach, Diagnostic (ICD-10-PCS; principal; 2020-03-21)
DX: B27.90 Infectious mononucleosis, unspecified without complication (principal); Z20.828 Contact with and (suspected) exposure to other viral communicable diseases; Z88.2 Allergy status to sulfonamides; Z91.013 Allergy to seafood; Z91.048 Other nonmedicinal substance allergy status
CPT/HCPCS: 62270 ×2; 96361; 87040 ×2; 87070 ×2; 85025; 80048; 36415; 89050 ×2; 86308; 84157; 82945; 87081; 86403 ×6; 84145; 87804 ×2; 70450; 96374; 99284; U0002; J2175; J7030

== ENCOUNTER 2022-02-17 07:47 | Day surgery (SDC) | payer OTHER ==
[2022-02-16 10:51] LABS: Specific Gravity 1.023 (1.005-1.030)
[2022-02-16 11:17] LABS: SARS-CoV-2 Antigen Rapid Res Negative (Negative)
[2022-02-17] MEDS ORDERED: Ringers Lactate 1,000 ML IV ONE (08:21)
[2022-02-17] MEDS ORDERED: CEFAZOLIN SODIUM 1 GM/VIAL ONE (08:21)
[2022-02-17] MEDS ORDERED: BUPIVACAINE 0.25% PF 10 ML VIAL ONE (11:12)
[2022-02-17] MEDS ORDERED: propofoL 200 MG/20 ML VIAL IV ONE (11:37)
[2022-02-17] MEDS ORDERED: LIDOCAINE 2% MPF 5 ML VIAL ONE (11:38)
[2022-02-17] MEDS ORDERED: FENTANYL CITR 100 MCG/2 ML ONE (11:38)
[2022-02-17] MEDS ORDERED: MIDAZOLAM HCL 2 MG/2 ML INJ ONE (11:38)
[2022-02-17] MEDS ORDERED: ONDANSETRON 4 MG/2 ML VIAL ONE (11:41)
[2022-02-17] MEDS ORDERED: dexAMETHasone 10 MG/ML VIAL ONE (12:00)
--- NOTE | 2022-02-17 12:15 | P.OP ---
Preoperative diagnosis: RIGHT Axillary Hidradenitis / Cyst Postoperative diagnosis: RIGHT Axillary Hidradenitis / Cyst Primary procedure: Wide Excision of RIGHT Axillary Hidradenitis / Cyst Anesthesia: GETA + Local Estimated blood loss: <5cc Specimen: Debridement Tissues Findings: ~ 2.5cm cystic structure possible hidradenitis Complications: None Transferred to: Recovery Room Condition: Good
[2022-02-17] MEDS: HYDROMORPHONE HCL 1 MG/ML INJ ONE ×2 (12:38→12:43)
[2022-02-17 13:15] VITALS: BP 111/72; TEMP 98.6; O2SAT 99
[2022-02-17] MEDS ORDERED: HYDROCODONE/APAP 7.5/325 MG TAB ONE (13:20)
--- NOTE | 2022-02-17 23:04 | OP ---
Date of Procedure: 02/17/2022 Surgeon: Conner Mcmahon MD, Preoperative Diagnosis: Right axillary hidradenitis/cyst. Postoperative Diagnosis: Right axillary hidradenitis/cyst. Procedure Performed: Excision of right axillary hidradenitis/cyst. Anesthesia: General endotracheal plus local. Estimated Blood Loss: 5 mL. Specimen: Debrided tissues. Findings: Approximately 2.5 cm cystic structure, possible consistent with hidradenitis of the right axilla. Complications: None. Disposition: The patient was transferred to recovery room in good condition. Procedure In Detail: After informed consent was obtained, the patient was brought to the operating r oom, prepped and draped in the usual sterile fashion. After adequate anesthesia was achieved, I inje cted the area of the right axilla, palpated the cystic structure in the right axilla, made an ellipti afshin incision around this area and dissecting down through subcutaneous tissues using a combination of sharp and electrocautery dissection circumferentially around to expose the cystic structure consiste nt with hidradenitis. This was removed in its entirety. I did not enter the prepectoral fascia at t his point, or the clavipectoral fascia. I removed the cyst in its entirety, sent it off for patholog ic examination. We irrigated the area copiously. Achieved hemostasis with electrocautery. Only irr igated the area once again and then suture closed the skin edges using a 2-0 nylon suture and a steri le dressing placed over top. The patient tolerated the procedure well without complication, transfer red to PACU in good condition. All counts were correct at the end of the case. LOVE/RICHARD Voice ID: [id number] Report ID: [id number]
== END 2022-02-17 13:42 | disposition home or self-care (01) ==
LOC: OR 07:47
PROVIDERS: ATTEND Surgery
PROC: 0JBD0ZZ Excision of Right Upper Arm Subcutaneous Tissue and Fascia, Open Approach (ICD-10-PCS; principal; 2022-02-17 09:15)
DX: L73.2 Hidradenitis suppurativa (principal); Z20.822 Contact with and (suspected) exposure to COVID-19; F41.9 Anxiety disorder, unspecified; F32.A Depression, unspecified
CPT/HCPCS: 36415; 81025; 88304; 87811; 11450; J2704; J2001; J2250; J3010; J1100; J1170; J7120; J2405; J0690

== ENCOUNTER 2022-02-18 14:38 | Emergency (ER) | payer OTHER ==
--- OUTSIDE RECORDS SUMMARY | 2022-02-18 14:42 | XMS REPORT | Continuity of Care Document ---
:1995 Author Organization [facility] t Address [address] [place] [address] Care Team Providers Name Role Phone PCP, PATIENT DOES NOT HAVE A Primary Care Physician Unavaila RACHEAL Love Attending Clinician Unavailable SAÚL BO Attending Clinician Unavailable Luis Norton DO Attending Clinician ELVIRA FLOR Attending Clinician Unavailable BREANNE PÉREZ Attending Clinician Unavailable Breanne Crews Attending Clinician LAB90 Attending Clinician Unavailable Luis BRISCOE, Geovanna Covington Attending Clinician [phone] Javier Sanford MD Attending Clinician JAVIER SANFORD Attending Clinician Unavailable Radha Khan DO Attending Clinician RADHA KHAN Attending Clinician Unavailable Payers Payer Name Policy Type Policy Number Effective Date Expiration Date [facility] [employer] 9 [id number] 2018 EMT 00:00:00 Problems Condition Condition Condition Status Onset Resolution Last Treating Co mments Source Name Details Category Date Date Treatment Clinician Date No known No known Disease Unive rs active active ity of problems problems [facility] Allergies, Adverse Reactions, Alerts Allergy Allergy Status Severity Reaction(s) Onset Inactive Treating Comm ents Source Name Type Date Date Clinician IODINE DRUG Active Rash 2019-06 Univers INGREDI 0-27 ity of 00:00: [place] 00 Medical Branch SULFA Drug Active Rash 2019-06 Univers (SULFONA Class 0-27 ity of MIDE 00:00: [place] ANTIBIOT 00 Medical ICS) Branch Sulfa Propensi Active Rash 2019-06 Univers (Sulfona ty to 0-27 ity of mide adverse 00:00: [place] Antibiot reaction 00 Medica l ics) s Branch Iodine Propensi Active Rash 2019-06 Univers ty to 0-27 ity of adverse 00:00: [place] reaction 00 Medical s Branch Sulfa Propensi Active Rash 2019-06 Univers (Sulfona ty to 0-27 ity of mide adverse 00:00: [place] Antibiot reaction 00 Medica l ics) s Branch Social History Social Habit Start Date Stop Date Quantity Comments Source Exposure to 2021-12-23 2022-01-02 Not sure [facility] SARS-CoV-2 (event) 00:00:00 19:19:00 Medica l Branch Sex Assigned At [birth year] [facility] y of [place] 00:00:00 00:00:00 Medical Branch Smoking Status Start Date Stop Date Source Tobacco smoking consumption [facility] Branch Medications Ordered Filled Start Stop Current Ordering Indication Dosage Frequency Signature Comments Components Source Medication Medication Date Date Medication? Clinician (SIG) Name Name No known No No known [facility] rs medications 01-02 medication it y of 19:26: s [place] 45 Medical Branch butorphanol 2019-06 2020- No 1mg 1 mg, Univ ers (STADOL) -27 Intravenou ity of injection 1 11:30: 09:45 s, ONCE, 1 [place] mg 00 :00 dose, [facility] Medical 03/30/20 Branch at 0630, Routine dexamethaso 2019-06 2020- No 10mg 10 mg, IV Univers ne 10-27 Push, ity of (DECADRON 09:45: 08:56 ONCE, 1 [place] PHOS[place] 00 :00 dose, [facility] afshin injection 03/30/20 Branch 10 mg at 0445, STAT metoclopram 2019-06 2020- No 10mg 10 mg, Uni vers lino HCl 10-27 Slow IV ity of (REGLAN) 09:45: 08:56 Push, [place] injection 00 :00 ONCE, 1 Medical 10 mg dose, [facility] 03/30/20 at 0445, KEELEY diphenhydrA 2019-06- No 25mg 25 mg, Uni vers MINE 003-30 Slow IV ity of (BENADRYL) 09:45: 08:55 Push, [place] injection 00 :00 ONCE, 1 Medical 25 mg dose, [facility] 03/30/20 at 0445, STAT ketorolac 2019-06 No 30mg 30 mg, Unive rs (TORADOL) 003-30 Slow IV ity of injection 08:45: 08:58 Push, [place] 30 mg 00 :00 ONCE, 1 Medical dose, [facility] 03/30/20 at 0345, KEELEY
Fa culty member approving Restricted medication : RADHA KHAN NaCl 0.9% 2019-06 No 1000mL at 999 Uni vers (NS) bolus 003-30 mL/hr, ity of infusion 08:45: 09:45 1,000 mL, Steve as 1,000 mL 00 :00 IV Medical Infusion, Branch ONCE, 1 dose, [facility] 03/30/20 at 0345, KEELEY No known No Univers medications [facility] No known No Univers medications [facility] Vital Signs Vital Name Observation Time Observation Value Comments Source Systolic blood 2022-01-03 00:20:00 145 mm[Hg] [facility] Diastolic blood 2022-01-03 00:20:00 80 mm[Hg] [facility] Heart rate 2022-01-03 00:20:00 108 /min [facility] Body temperature 2022-01-03 00:20:[address] [facility] Respiratory rate 2022-01-03 00:20:00 20 /min [facility] Body height 2022-01-03 00:20:00 157.5 cm [facility] Body weight 2022-01-03 00:20:00 61.236 kg [facility] BMI 2022-01-03 00:20:00 24.69 kg/m2 [facility] Oxygen saturation in 2022-01-03 00:20:00 100 /min University Arterial blood by [facility] Pulse oximetry Branch Systolic blood 2020-03-30 11:01:00 103 mm[Hg] Univer sity of pressure [place] [facility] Diastolic blood 2020-03-30 11:01:00 69 mm[Hg] Unive rsity of pressure [place] [facility] Heart rate 2020-03-30 11:01:00 63 /min Universi ty of [place] [facility] Respiratory rate 2020-03-30 11:01:00 16 /min Univ ersity of [facility] Oxygen saturation in 2020-03-30 11:01:00 100 /min [facility] Arterial blood by [facility] Pulse oximetry Branch Body weight 2020-03-30 08:39:16 61.236 kg Universi ty [facility] [place] Body temperature 2020-03-30 08:34:00 36.5 Alexa [facility] ersity of [place] [facility] [place] Procedures Procedure Date / Time Performed Performing Clinician Sour e NOTICE OF PRIVACY 2022-01-03 00:11:52 Doctor Unassigned, No Univ ersity [facility] PRACTICES Name Medical Branch CONSENT/REFUSAL FOR 2022-01-03 00:11:33 Doctor Unassigned, No Un [facility] [place] DIAGNOSIS AND Name Medical Branch TREATMENT NOTICE OF PRIVACY 2020-03-30 08:27:09 Doctor Unassigned, No Univ ersity of [place] PRACTICES Name Medical Branch CONSENT/REFUSAL FOR 2020-03-30 08:26:54 Doctor Unassigned, No [facility] [place] DIAGNOSIS AND Name Medical Branch TREATMENT Encounters Start End Encounter Admission Attending Care Care Encounter Source Date/Time Date/Time Type Type Clinicians Facility Department ID 2022-03-09 2022-03-09 Outpatient KAREN COCHRAN [id number] Karen 14:45:00 14:45:00 RACHEAL johnson 2022-03-07 2022-03-07 Outpatient KAREN BO [id number] Karen 15:00:00 15:00:00 SAÚL freeman 2022-02-09 2022-02-09 Office Jaylon Norton [id number] Karen 08:15:00 08:30:00 Visit Luis Rivera [id number] Se rudolph [id number] 2022-01-06 2022-01-06 Outpatient KAREN FLOR [id number] Karen 14:15:00 14:15:00 ELVIRA Saundersol elizabeth 2022-01-02 2022-01-02 Emergency X ELISA, [facility] ERT [id number] Univers 19:25:00 20:19:00 BREANNE krause of [facility] 2022-01-02 2022-01-02 [facility] [id number] Univers 19:25:00 20:19:00 Breanne WATKINS [id number] ity of [facility] [id number] [facility] [id number] [address] 2021-12-22 2021-12-22 Outpatient LAB90 KAREN KERR [id number] Karen 15:45:00 15:45:00 Gabbie johnson 2021-12-22 2021-12-22 Office Jaylon Smith [id number] Karen 15:15:00 15:30:00 Visit Geovanna Rivera [id number] isidrapete Adria [id number] 2021-02-25 2021-02-25 Outpatient KAREN COCHRAN [id number] Karen 09:45:00 09:45:00 RACHEAL johnson 2020-09-22 2020-09-22 Emergency [facility] [id number] Univers 22:03:00 22:26:00 Javier Watkins [id number] ity of [place] [id number] [facility] [id number] [address] 2020-09-22 2020-09-22 [facility] [id number] Univers 22:03:00 22:03:00 JAVIER pat [facility] 2020-03-30 2020-03-30 [facility] [id number] Univers 03:30:00 06:56:00 Radha Watkins [id number] ity of [place] [id number] [facility] [id number] [place] [id number] Branch 2020-03-30 2020-03-30 Emergency X BILL [facility] [id number] [facility] 03:30:00 03:30:00 RADHA pat of [facility] Results This patient has no known results.
[2022-02-18] MEDS ORDERED: ONDANSETRON 4 MG (ODT) TAB ONE (15:38)
[2022-02-18] MEDS ORDERED: KETOROLAC 30 MG/ML INJ ONE (15:38)
[2022-02-18] MEDS ORDERED: MORPHINE 4 MG/ML SYR ONE (15:38)
--- NOTE | 2022-02-18 15:51 | EDPHYS ---
Physician Documentation [facility] Name: Makeda Fox Age: 26 yrs Sex: Female : 1995 Arrival Date: 02/18/2022 Time: 14:40 Bed 25 Private MD: Geovanna Smith ED Physician Nieves Hilton HPI: 02/18 15:08 This 26 yrs old Female presents to ER via Ambulatory with complaints of Post Surgical jmm Pain. 15:08 The patient or guardian complains of pain. Onset: The symptoms/episode began/occurred jmm gradually. Modifying factors: The symptoms are alleviated by nothing. the symptoms are aggravated by nothing. 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 - Social history:: Smoking status: Patient denies any tobacco usage or history of. ROS: 15:08 Constitutional: Negative for fever, chills, and weight loss, Cardiovascular: Negative jmm for chest pain, palpitations, and edema, Respiratory: Negative for shortness of breath, cough, wheezing, and pleuritic chest pain. 15:08 MS/extremity: Positive for pain. 15:08 All other systems are negative. Exam: 15:08 Constitutional: This is a well developed, well nourished patient who is awake, alert, jmm and in no acute distress. Head/Face: atraumatic. Eyes: EOMI, no conjunctival erythema appreciated ENT: Moist Mucus Membranes Neck: Trachea midline, Supple Chest/axilla: Normal chest wall appearance and motion. Cardiovascular: Regular rate and rhythm. No edema appreciated Respiratory: Normal respirations, no respiratory distress appreciated Abdomen/GI: Non distended Back: Normal ROM 15:08 Skin: incision site appears clean, no purulent drainage, no surrounding induration appreciated. 15:08 Neuro: Orientation: is normal, Mentation: is normal, Memory: is normal. 15:08 Psych: Behavior/mood is pleasant, cooperative. Vital Signs: 14:49 BP 126 / 78; Pulse 86; Resp 16; Temp 99.2(O); Pulse Ox 100% on R/A; Weight 61.23 kg; hb Height 5 ft. 2 in. (157.48 cm); Pain 10/10; 15:55 BP 117 / 72; Pulse 80; Resp 16; Pulse Ox 99% ; kb3 14:49 Body Mass Index 24.69 (61.23 kg, 157.48 cm) hb MDM: 15:08 Patient medically screened. [facility] 15:49 Data reviewed: vital signs, nurses notes. Counseling: I had a detailed discussion with ki the patient and/or guardian regarding: the historical points, exam findings, and any diagnostic results supporting the discharge/admit diagnosis, the need for outpatient follow up, to return to the emergency department if symptoms worsen or persist or if there are any questions or concerns that arise at home. Administered Medications: 15:30 Drug: Ketorolac 30 mg Route: IM; Site: left ventrogluteal; kb3 15:56 Follow up: Response: No adverse reaction; Pain is decreased kb3 15:30 Drug: morphine 4 mg Route: IM; Site: right ventrogluteal; kb3 15:56 Follow up: Response: No adverse reaction; Pain is decreased kb3 15:30 Drug: Ondansetron 4 mg Route: PO; kb3 15:56 Follow up: Response: No adverse reaction; Pain is decreased kb3 Disposition: 16:19 STAFF ATTESTATION STATEMENT: I was immediately available onsite in the emergency sd2 department for consultation in the care of this patient. I did not see or examine this patient. Nieves Hilton MD. Disposition Summary: 02/18/22 15:50 Discharge Ordered Location: Home [facility] Condition: Stable [facility] Diagnosis - Post Operative Pain [facility] Followup: [facility] - With: Private Physician - When: 2 - 3 days - Reason: Recheck today's complaints, Continuance of care, Re-evaluation by your physician Discharge Instructions: - Discharge Summary Sheet [facility] - Hidradenitis Suppurativa [facility] Forms: - Medication Reconciliation Form [facility] - Thank You Letter [facility] - Antibiotic Education gilda - Prescription Opioid Use [facility] Prescriptions: - Diclofenac Sodium 75 mg Oral Tablet Sustained Release - take 1 tablet by ORAL route 2 times per day; 30 tablet; Refills: 0, Product [facility] Selection Permitted Signatures: Bakari Pimentel PA PA jmm Baxter, Heather, RN RN hb Nieves Hilton MD MD sd2 Candis Love, MARIBEL RN kb3
--- NOTE | 2022-02-18 15:51 | ER ---
Nurse's Notes [facility] Name: Makeda Fox Age: 26 yrs Sex: Female : 1995 Arrival Date: 02/18/2022 Time: 14:40 Bed 25 Private MD: Geovanna Smith Diagnosis: Post Operative Pain Presentation: 02/18 14:49 Chief complaint: Had surgery on right underarm by Dr. Mcmahon yesterday, c/o severe hb pain unrelieved by Tylenol 3, unable to reach Dr. Mcmahon or PCP. Coronavirus screen: At this time, the client does not indicate any symptoms associated with coronavirus-19. Ebola Screen: No symptoms or risks identified at this time. Risk Assessment: Do you want to hurt yourself or someone else? Patient reports no desire to harm self or others. Onset of symptoms was February 18, 2022. 14:49 Method Of Arrival: Ambulatory hb 14:49 Acuity: MINI 3 hb 16:01 Initial Sepsis Screen: Does the patient meet any 2 criteria? No. Patient's initial kb3 sepsis screen is negative. Does the patient have a suspected source of infection? No. Patient's initial sepsis screen is negative. 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 - Social history:: Smoking status: Patient denies any tobacco usage or history of. Screenin:00 Abuse screen: Denies threats or abuse. Denies injuries from another. Nutritional kb3 screening: No deficits noted. Tuberculosis screening: No symptoms or risk factors identified. Fall Risk None identified. Assessment: 15:00 General: Appears in no apparent distress. uncomfortable, Behavior is calm, cooperative, kb3 Received care of pt from [facility] without distress. Pt reports I\T\D of abscess in Right axilla yesterday by Dr Mcmahon and pt is experiencing post-procedure pain today. PY reports taking Tylenol #3 as prescribed with minimal relief and unable to get ahold of Dr Mcmahon.. 15:00 Pain: Complains of pain in right axilla Pain does not radiate. Pain currently is 8 out kb3 of 10 on a pain scale. Quality of pain is described as burning, sharp, stabbing, Pain began 1 day ago. Is continuous. Vital Signs: 14:49 BP 126 / 78; Pulse 86; Resp 16; Temp 99.2(O); Pulse Ox 100% on R/A; Weight 61.23 kg; hb Height 5 ft. 2 in. (157.48 cm); Pain 10/10; 15:55 BP 117 / 72; Pulse 80; Resp 16; Pulse Ox 99% ; kb3 14:49 Body Mass Index 24.69 (61.23 kg, 157.48 cm) hb ED Course: 14:40 Patient arrived in ED. am2 14:41 Geovanna Smith is Private Physician. am2 14:42 Bak[facility]imentel [facility] is [facility] 14:42 Nieves Hilton MD is Attending Physician. [facility] 14:51 Triage completed. hb 14:51 Arm band placed on. hb 15:00 Patient has correct armband on for positive identification. Bed in low position. Call kb3 light in reach. 15:00 No provider procedures requiring assistance completed. Patient did not have IV access kb3 during this emergency room visit. 15:15 Candis Love, RN is Primary Nurse. kb3 Administered Medications: 15:30 Drug: Ketorolac 30 mg Route: IM; Site: left ventrogluteal; kb3 15:56 Follow up: Response: No adverse reaction; Pain is decreased kb3 15:30 Drug: morphine 4 mg Route: IM; Site: right ventrogluteal; kb3 15:56 Follow up: Response: No adverse reaction; Pain is decreased kb3 15:30 Drug: Ondansetron 4 mg Route: PO; kb3 15:56 Follow up: Response: No adverse reaction; Pain is decreased kb3 Medication: 15:00 VIS not applicable for this client. kb3 Outcome: 15:50 Discharge ordered by . gilda 16:00 Discharged to home ambulatory. kb3 16:00 Condition: improved 16:00 Discharge instructions given to patient, Instructed on discharge instructions, follow up and referral plans. medication usage, Demonstrated understanding of instructions, follow-up care, medications, Prescriptions given X 1. 16:01 Patient left the ED. kb3 Signatures: Mickail, Bakari, PA PA jmm Onur, Jami, RN RN iw Adore Han, MARIBEL RN Essence Lizama am2 Candis Love, RN RN kb3 Corrections: (The following items were deleted from the chart) 14:52 14:49 BP 126 / 78; Pulse 86bpm; Resp 16bpm; Pulse Ox 100% RA; Temp 99.2F Oral; Pain hb 10/10; hb 14:54 14:49 Chief complaint: Had surgery on underarm by Dr. Mcmahon yesterday, c/o severe iw pain unrelieved by Tylenol 3, unable to reach Dr. Mcmahon or PCP. hb
[2022-02-20 00:55] VITALS: TEMP 99.2
[2022-02-20 00:57] VITALS: BP 117/72; O2SAT 99
== END 2022-02-18 16:01 | disposition home or self-care (01) ==
LOC: ER 14:38
DX: G89.18 Other acute postprocedural pain (principal)
CPT/HCPCS: 96372; 99283; Q0162